=== PATIENT | female | born 1965 | race Caucasian/White ===

== ENCOUNTER → 2018-04-18 | Outpatient (CLI) | payer BC ==
--- NOTE | 2018-04-18 18:53 | Diagnostic Imaging Report ---
HEPATOBILIARY SCAN INDICATION: Right upper abdominal pain Report: Following the administration of 6 mCi of Tc-99m mebrofenin, dynamic images of the abdomen in the anterior projection were obtained through 60 minutes. Additional static image was obtained at 3 hours. Perfusion of the liver is normal. Extraction of tracer from the blood pool by the liver parenchyma is normal. Tracer appears promptly with in the biliary tract. Tracer is seen in the small bowel by 26 minutes post injection of the radiotracer. The gallbladder does not fill during the initial 60-minute dynamic sequence and does not fill by 3 hours. Impression: 1. Absence of filling of the gallbladder through 3 hours post administration of the radiotracer supports the clinical diagnosis of chronic and/or acute cholecystitis. Signed by: Dr. Michelle Castillo M.D. on 04/18/2018 6:50 PM
== END ==
LOC: NM 14:05
PROVIDERS: ATTEND Family Medicine
DX: R10.11 Right upper quadrant pain (principal)
CPT/HCPCS: 78226; A9537

== ENCOUNTER → 2018-07-15 | Day surgery (SDC) | payer BC ==
[~2018-07-15] MED LIST: CLONIDINE HCL0.1 MG PO; DICLOFENAC PO; EPHEDRINE SULFATE INJ 50 MG/10 ML SYR ONE; FENTANYL CITRATE/PF 100MCG/2 ML INJ ONE; GLUCAGON FOR INJ 1 MG VIAL ONE; LIDOCAINE HCL 2% LOCAL INJ 5 ML SDV VIAL INJ ONE; LOSARTAN POTASS25 MG PO; MIDAZOLAM HCL 2 MG/2 ML VIAL ONE; MONTELUKAST SOD10 MG PO; PROPOFOL IV EMULSION 10 MG/ML 50 ML VIAL ONE; TERBINAFINE HC250 MG PO
--- OUTSIDE RECORDS SUMMARY | 2018-07-15 11:49 | XMS REPORT ---
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 Allergies, Adverse Reactions, Alerts Allergy Name Allergy Type Status Severity Reaction(s) Onset Date Inactive Date Treating Clinician Comments No Known Allergies DA Active U 2012-04-20 00:00:00 Medications This patient has no known medications. Results Test Description Test Time Test Comments Text Results Atomic Results Result Comments HEPTOBILIARY 2018-04-18 18:46:00 [place] [id number] Patient Name: MARCO ANTONIO VALDES MR #: [id number] : 1965 Age/Sex: 52/F Req #: [id number] Adm Physician: Ordered by: CHERRI ARANGO MD Report #: [id number] Location: [place] Room/Bed: Procedure: [id number] NM/HEPTOBILIARY Exam Date: Exam Time: REPORT STATUS: Signed HEPATOBILIARY SCAN INDICATION: Right upper abdominal pain Report: Following the administration of 6 mCi of Tc-99m mebrofenin, dynamic images of the abdomen in the anterior projection were obtained through 60 minutes. Additional static image was obtained at 3 hours. Perfusion of the liver is normal. Extraction of tracer from the blood pool by the liver parenchyma is normal. Tracer appears promptly with in the biliary tract. Tracer is seen in the small bowel by 26 minutes post injection of the radiotracer. The gallbladder does not fill during the initial 60-minute dynamic sequence and does not fill by 3 hours. Impression: 1. Absence of filling of the gallbladder through 3 hours post administration of the radiotracer supports the clinical diagnosis of chronic and/or acute cholecystitis. Signed by: Dr. Ralph Reyes M.D. on 04/18/2018 6:50 PM Dictated By: RALPH REYES MD 49 Transcribed By: GURPREET on 04/18/181849 COPY TO: CHERRI ARANGO MD
[2018-07-15 14:25] VITALS: BP 123/98
--- NOTE | 2018-07-15 16:01 | Operative Report ---
DATE OF PROCEDURE: July 15, 2018 REFERRING PHYSICIAN: Dr. Cherri Arango PROCEDURES PERFORMED 1. Esophagogastroduodenoscopy with biopsies. 2. Colonoscopy with polypectomy and biopsies. INDICATION FOR EGD: Dyspepsia. INDICATION FOR COLONOSCOPY: History of bloody diarrhea. MEDICATION: Patient was done under MAC. Please see anesthesiologist's note. PROCEDURE: With the patient in the left lateral decubitus position, the flexible fiberoptic Olympus gastroscope was introduced into the esophagus under direct visualization without any difficulty. There was some patchy erythema noted in the distal esophagus. A minute tongue of velvety red mucosa was noted to extend proximally from the GE junction. That was biopsied to rule out Lundberg's. The scope was then advanced with ease into the stomach. The mucosa overlying the antrum and the body revealed some patchy erythema and mild to moderate edema, and biopsies were obtained and sent to stain for H. pylori. The pylorus was of normal contour and shape. It was intubated with ease, and the scope was advanced all the way to the 2nd portion of the duodenum. Biopsies were obtained from the proximal 2nd portion and the duodenal bulb to rule out sprue. The scope was then withdrawn back into the stomach and retroflexed. Mucosa overlying the fundus and the cardia appeared to be within normal limits. The scope was then straightened out. It was subsequently withdrawn. Patient tolerated the procedure well. IMPRESSION 1. Mild distal esophagitis. 2. Rule out Lundberg's esophagus. 3. Gastritis, biopsied. Biopsies sent to stain for H. pylori. 4. Rule out sprue. PLAN: Follow up histology. Initiate Protonix 40 mg 1 p.o. q.a.m. a.c. The patient was then turned around. After adequate lubrication of the anal canal, a flexible fiberoptic Olympus colonoscope was inserted into the rectum with ease and advanced all the way to the cecum. The mucosa overlying the cecum appeared to be within normal limits. The ileocecal valve was intubated, and the scope was advanced into the terminal ileum. Biopsies were obtained from the terminal ileum. The scope was then withdrawn back into the colon. It was then withdrawn slowly. Mucosa overlying the ascending and transverse appeared to be within normal limits. There were some patchy mild inflammatory changes noted in the left colon and rectum, and random biopsies were obtained. One polyp was snared from the sigmoid colon. The scope was then retroflexed into the distal rectum, and small internal hemorrhoids were noted none of which was actively bleeding. The scope was then straightened out. It was subsequently withdrawn after securing an adequate stool specimen that was sent for the appropriate stool studies. Patient tolerated the procedure well. IMPRESSION 1. Mild patchy left-sided colitis. 2. Sigmoid colon polyp, snared. 3. Proctitis, mild. 4. Internal hemorrhoids, none actively bleeding. PLAN: Follow up histology. Follow up stool studies. Initiate Bentyl 20 mg 1 p.o. t.i.d. and VSL #3 one p.o. daily. Patient might benefit from a followup colonoscopy in 3 to 5 years. Job#: [id number] cc:CHERRI ARANGO MD
[2018-07-15 16:12] LABS: WBC,FECAL (FECAL LACTOFERRIN) NEGATIVE (NEGATIVE)
[2018-07-17 11:41] LABS: C DIFFICILE TOXIN A&B AMP PROB NEGATIVE (NEGATIVE)
== END | disposition home or self-care (01) ==
LOC: OR 11:48
PROVIDERS: ATTEND Internal Medicine Gastroenterology
DX: K51.50 Left sided colitis without complications (principal); K63.5 Polyp of colon; K29.50 Unspecified chronic gastritis without bleeding; K62.89 Other specified diseases of anus and rectum; K64.8 Other hemorrhoids; D63.8 Anemia in other chronic diseases classified elsewhere; I10 Essential (primary) hypertension; F32.9 Major depressive disorder, single episode, unspecified; Z01.810 Encounter for preprocedural cardiovascular examination; Z68.35 Body mass index [BMI] 35.0-35.9, adult
CPT/HCPCS: 43239; 45380; 45385; 83630; 83993; 87045; 87177; 87328; 87493; 93005; J1610; J2001; J2250; J2704; 45378

== ENCOUNTER → 2018-07-21 | Outpatient (CLI) | payer BC ==
[~2018-07-21] MED LIST changes: -EPHEDRINE SULFATE INJ 50 MG/10 ML SYR ONE; -FENTANYL CITRATE/PF 100MCG/2 ML INJ ONE; -GLUCAGON FOR INJ 1 MG VIAL ONE; +IOPAMIDOL 370 MG/ML 200 ML INFUS..BTL INJ ONE; -LIDOCAINE HCL 2% LOCAL INJ 5 ML SDV VIAL INJ ONE; -MIDAZOLAM HCL 2 MG/2 ML VIAL ONE; -PROPOFOL IV EMULSION 10 MG/ML 50 ML VIAL ONE; +SODIUM CHLORIDE 0.9% 50ML 50 ML ONE
[2018-07-21 08:15] LABS: BLOOD UREA NITROGEN 6 mg/dL (8-26); BUN/CREATININE RATIO 9 (6-25); CREATININE, SERUM 0.7 mg/dL (0.6-1.1); EST GLOMERULAR FILTRATION RATE > 60 ML/MIN (60-)
--- NOTE | 2018-07-21 09:37 | Diagnostic Imaging Report ---
EXAMINATION: CT of the abdomen and pelvis with contrast. TECHNIQUE: Spiral CT images of the abdomen and pelvis were performed from the lung bases to the lesser trochanters after the intravenous administration of 100 cc of Isovue-370 and the oral administration of water. Coronal and sagittal reformatted images were obtained. COMPARISON: Nuclear medicine hepatobiliary scan 04/18/2018 CLINICAL HISTORY:Abdominal pain, bloody diarrhea. Patient reports history of cholecystectomy, tubal ligation, and "uterus ablation". DISCUSSION: ABDOMEN/PELVIS: LOWER THORAX:Unremarkable. HEPATOBILIARY: 1 cm lesion in hepatic segment 4A, average internal attenuation 10 Hounsfield units, compatible with a simple cyst. No additional focal hepatic lesions of the visualized portions of the liver. The hepatic dome is incompletely visualized secondary to scan field. No intra-or extrahepatic biliary ductal dilation. The gallbladder has been removed with metallic clips noted in the gallbladder fossa. SPLEEN: No splenomegaly. PANCREAS: No focal masses or ductal dilatation. ADRENALS: No adrenal nodules. KIDNEYS/URETERS: No hydronephrosis, stones, or solid mass lesions. PELVIC ORGANS/BLADDER: The urinary bladder is incompletely distended but otherwise unremarkable. The uterus is anteflexed and appears normal. Bilateral tubal ligation clips. No adnexal mass. PERITONEUM/RETROPERITONEUM: No free air or fluid. LYMPH NODES: No pelvic sidewall, retroperitoneal, or mesenteric lymphadenopathy. VESSELS: Abdominal aorta, major branch vessels, and iliac arterial systems are well-visualized and patent. Minimal calcified atherosclerotic plaque along the right common iliac artery. Portal vein, splenic vein, and central superior mesenteric vein are patent. GI TRACT: There is a short segment focus of wall thickening and vascular engorgement involving the distal ascending colon and hepatic flexure, exemplified on series 2 image 29. The remainder of the large bowel is unremarkable. The appendix is normal. There is no small bowel dilatation to suggest obstruction. BONES AND SOFT TISSUE: No focal soft tissue abnormalities. No osseous destructive lesions. Mild degenerative disc changes and facet arthropathy of the lower lumbar spine. No soft tissue abnormalities. IMPRESSION: Short segment infectious or inflammatory colitis involving the distal ascending colon and hepatic flexure. No evidence of perforation or drainable fluid collection. Signed by: Dr. Mayur Nettles M.D. on 07/21/2018 9:34 AM
== END ==
LOC: CT 07:18
PROVIDERS: ATTEND Internal Medicine Gastroenterology
DX: K92.1 Melena (principal); D64.9 Anemia, unspecified; R14.0 Abdominal distension (gaseous)
CPT/HCPCS: 36415; 74177; 82565; 84520; Q9967

== ENCOUNTER 2020-01-08 16:10 | Observation (INO) | payer BC ==
[~2020-01-08] VITALS: Ht 165.1 cm; Wt 108.0 kg
[~2020-01-08 16:10] MED LIST changes: -IOPAMIDOL 370 MG/ML 200 ML INFUS..BTL INJ ONE; -SODIUM CHLORIDE 0.9% 50ML 50 ML ONE
[2020-01-08] MEDS ORDERED: ASPIRIN 81 MG CHEW TAB PO ONE ×2 (16:45→18:00)
[2020-01-08 17:07] LABS: BASOPHILS # (AUTO) 0.1 (0.0-0.1); BASOPHILS % 0.4 % (0.0-1.0); EOSINOPHILS # (AUTO) 0.4 (0.0-0.4); EOSINOPHILS % 3.1 % (0.0-6.0); HEMATOCRIT 43.6 % (34.2-44.1); HEMOGLOBIN 14.3 g/dL (12.0-16.0); LYMPHOCYTES # (AUTO) 3.7 (1.0-3.2); LYMPHOCYTES % 30.6 % (18.0-39.1); MEAN CORPUSCULAR HEMOGLOBIN 29.2 pg (28-32); MEAN CORPUSCULAR HGB CONC 32.8 g/dL (31-35); MEAN CORPUSCULAR VOLUME 89.2 fL (81-99); MONOCYTES # (AUTO) 0.7 (0.2-0.8); NEUTROPHILS # (AUTO) 6.8 (2.1-6.9); NEUTROPHILS % 57.1 % (38.7-80.0); PLATELET COUNT 320 x10e3/uL (140-360); RED BLOOD COUNT 4.89 x10e6/uL (3.6-5.1); RED CELL DISTRIBUTION WIDTH 12.8 % (11.7-14.4)
[2020-01-08 17:26] LABS: ALANINE AMINOTRANSFERASE 40 IU/L (0-55); ALBUMIN 3.6 g/dL (3.5-5.0); ALBUMIN/GLOBULIN RATIO 1.1 (0.8-2.0); ALKALINE PHOSPHATASE 70 IU/L (40-150); ANION GAP 14.9 mmol/L (8-16); BLOOD UREA NITROGEN 10 mg/dL (7-26); BUN/CREATININE RATIO 13 (6-25); CALCIUM 9.2 mg/dL (8.4-10.2); CARBON DIOXIDE 25 mmol/L (22-29); CHLORIDE 103 mmol/L (98-107); CREATINE KINASE 31 IU/L (29-168); CREATININE, SERUM 0.75 mg/dL (0.57-1.11); EST GLOMERULAR FILTRATION RATE > 60 ML/MIN (60-); GLUCOSE 92 mg/dL (74-118); POTASSIUM 3.9 mmol/L (3.5-5.1); SODIUM 139 mmol/L (136-145)
--- NOTE | 2020-01-08 17:46 | Emergency Department Note ---
History of Present Illnes History of Present Illness Chief Complaint: Chest Pain History of Present Illness This is a 54 year old female . Historian: Patient Arrival Mode: Car Onset (how long ago): day(s) (1) Location: CHEST Quality: DULL Radiation: Denies non-radiation, Denies back, Denies neck, Denies extremity, Denies abdomen, Denies periumbilical, Denies flank, Denies proximal, Denies distal, Denies other Severity: mild Onset quality: gradual Duration (how long): day(s) (1) Timing of current episode: intermittent Progression: waxing and waning Chronicity: new Context: Denies recent illness, Denies recent surgery, Denies recent immobilization, Denies recent travel, Denies trauma/injury, Denies new medications, Denies hx of DVT/PE, Denies non-compliance w/ medications, Denies other Relieving factors: none Exacerbating factors: none Associated symptoms: Reports chest pain; Denies denies other symptoms, Denies confusion, Denies cough, Denies diaphoresis, Denies fever/chills, Denies headaches, Denies loss of appetite, Denies malaise, Denies nausea/vomiting, Denies rash, Denies seizure, Denies shortness of breath, Denies syncope, Denies weakness, Denies other Treatments prior to arrival: none Past Medical/Family History Physician Review I have reviewed the patient's past medical and family history. Any updates have been documented here. Past Medical History Recent Fever: No Clinical Suspicion of Infectio: No New/Unexplained Change in Ment: No Past Medical History: Hypertension, Depression Other Medical History: ULCERATIVE COLITIS Past Surgical History: Cholecysctectomy, T&A, Tubal Ligation Social History Smoking Cessation: Unknown if ever smoked Counseling Performed: No Alcohol Use: None Any Illegal Drug Use: No Physically hurt or threatened: No Other Any Pre-Existing Lines (PICC,: No Review of Systems Review of Systems Constitutional: Reports no symptoms Cardiovascular: Reports as per HPI Physical Exam Related Data Allergies: Coded Allergies: No Known Allergies (Unverified , 07/15/18) Triage Vital Signs Vital Signs Date Time Temp Pulse Resp B/P (MAP) Pulse Ox O2 Delivery O2 Flow Rate FiO2 01/08/20 16:24 99.5 84 18 169/83 98 Room Air Vital signs reviewed: Yes Physical Exam CONSTITUTIONAL Constitutional: Present well-developed, Present well-nourished HENT HENT: Present normocephalic, Present atraumatic, Present oropharynx clear/moist, Present nose normal HENT L/R: Present left ext ear normal, Present right ext ear normal EYES Eyes: Reports PERRL, Reports conjunctivae normal NECK Neck: Present ROM normal PULMONARY Pulmonary: Present effort normal, Present breath sounds normal CARDIOVASCULAR Cardiovascular: Present regular rhythm, Present heart sounds normal, Present capillary refill normal, Present normal rate GASTROINTESTINAL Abdominal: Present soft, Present nontender, Present bowel sounds normal GENITOURINARY Genitourinary: Present exam deferred SKIN Skin: Present warm, Present dry MUSCULOSKELETAL Musculoskeletal: Present ROM normal NEUROLOGICAL Neurological: Present alert, Present oriented x 3, Present no gross motor or sensory deficits PSYCHOLOGICAL Psychological: Present mood/affect normal, Present judgement normal Results Laboratory Result Diagram: 01/08/20 1648 01/08/20 1648 Laboratory Laboratory Tests Test 01/08/20 16:48 White Blood Count 11.97 x10e3/uL (4.8-10.8) Red Blood Count 4.89 x10e6/uL (3.6-5.1) Hemoglobin 14.3 g/dL (12.0-16.0) Hematocrit 43.6 % (34.2-44.1) Mean Corpuscular Volume 89.2 fL (81-99) Mean Corpuscular Hemoglobin 29.2 pg (28-32) Mean Corpuscular Hemoglobin Concent 32.8 g/dL (31-35) Red Cell Distribution Width 12.8 % (11.7-14.4) Platelet Count 320 x10e3/uL (140-360) Neutrophils (%) (Auto) 57.1 % (38.7-80.0) Lymphocytes (%) (Auto) 30.6 % (18.0-39.1) Monocytes (%) (Auto) 6.0 % (4.4-11.3) Eosinophils (%) (Auto) 3.1 % (0.0-6.0) Basophils (%) (Auto) 0.4 % (0.0-1.0) Neutrophils # (Auto) 6.8 (2.1-6.9) Lymphocytes # (Auto) 3.7 (1.0-3.2) Monocytes # (Auto) 0.7 (0.2-0.8) Eosinophils # (Auto) 0.4 (0.0-0.4) Basophils # (Auto) 0.1 (0.0-0.1) Absolute Immature Granulocyte (auto 0.33 x10e3/uL (0-0.1) Sodium Level 139 mmol/L (136-145) Potassium Level 3.9 mmol/L (3.5-5.1) Chloride Level 103 mmol/L (98-107) Carbon Dioxide Level 25 mmol/L (22-29) Anion Gap 14.9 mmol/L (8-16) Blood Urea Nitrogen 10 mg/dL (7-26) Creatinine 0.75 mg/dL (0.57-1.11) Estimat Glomerular Filtration Rate > 60 ML/MIN (60-) BUN/Creatinine Ratio 13 (6-25) Glucose Level 92 mg/dL (74-118) Calcium Level 9.2 mg/dL (8.4-10.2) Total Bilirubin 0.3 mg/dL (0.2-1.2) Aspartate Amino Transf (AST/SGOT) 17 IU/L (5-34) Alanine Aminotransferase (ALT/SGPT) 40 IU/L (0-55) Alkaline Phosphatase 70 IU/L (40-150) Creatine Kinase 31 IU/L (29-168) Creatine Kinase MB 0.80 ng/mL (0-5.0) Troponin I < 0.001 ng/mL (0-0.300) Total Protein 6.8 g/dL (6.5-8.1) Albumin 3.6 g/dL (3.5-5.0) Globulin 3.2 g/dL (2.3-3.5) Albumin/Globulin Ratio 1.1 (0.8-2.0) Lab results reviewed: Yes Imaging Imaging results reviewed: Yes Procedures 12 Lead ECG Interpretation ECG Interpretation : ECG: ECG 1 Clinical Data Manager: Interpreted by ED physician Date: Jan 08, 2020 Time: 16:26 Rhythm: sinus rhythm Rate: normal BPM: 90 QRS axis: normal T waves flattening: III, aVF Clinical Impression: abnormal ECG Assessment & Plan Medical Decision Making MDM CAD Reassessment Reassessment BETTER Assessment & Plan Final Impression: (1) Chest pain Depart Disposition: ADMITTED Last Vital Signs Date Time Temp Pulse Resp B/P (MAP) Pulse Ox O2 Delivery O2 Flow Rate FiO2 7/27/20 16:24 99.5 84 18 169/83 98 Room Air Home Meds Reported Medications Montelukast Sodium (MONTELUKAST SODIUM) 10 Mg Tablet, 10 MG PO DAILY, #30 TAB 07/08/18 Losartan Potassium (LOSARTAN POTASSIUM) 25 Mg Tablet, 25 MG PO DAILY 07/08/18 [Diclofenac] No Conflict Check, 75 MG PO DAILY 07/08/18 Clonidine Hcl (CLONIDINE HCL) 0.1 Mg Tablet, 1 TAB PO DAILY, #60 TAB 07/08/18 Medications in the ED Aspirin 81 mg PRN ONCE PO ; Start 01/08/20 at 16:45; Stop 01/08/20 at 16:52; Status DC YAMILET VENEGAS MD Jan 08, 2020 17:45
[2020-01-08] MEDS ORDERED: ASPIRIN 325 MG TAB PO ONE (18:00)
--- NOTE | 2020-01-08 19:57 | Diagnostic Imaging Report ---
EXAMINATION: CHEST SINGLE (PORTABLE) INDICATION: Difficulty breathing. COMPARISON: None FINDINGS: TUBES and LINES: None. LUNGS: Low lung volumes. There is hazy opacification of the bilateral lung bases. PLEURA: No pleural effusion or pneumothorax. HEART AND MEDIASTINUM: The cardiomediastinal silhouette is unremarkable. BONES AND SOFT TISSUES: No acute osseous lesion. Soft tissues are unremarkable. UPPER ABDOMEN: No free air under the diaphragm. IMPRESSION: Hazy opacification in bilateral lung bases which may represent atelectasis and/or pneumonia in the proper clinical setting. Signed by: Tracie Doyle MD on 01/08/2020 7:54 PM
[2020-01-08 21:57] VITALS: BP 159/79
[2020-01-08 23:35] VITALS: BP 143/67
[2020-01-09 00:51] LABS: CREATINE KINASE 35 IU/L (29-168)
[2020-01-09] MEDS ORDERED: CYMBALTA20 MG PO (01:28)
[2020-01-09] MEDS ORDERED: PROTONIX20 MG PO (01:28)
[2020-01-09] MEDS ORDERED: DICYCLOMINE HCL20 MG PO (01:28)
[2020-01-09 04:00] VITALS: BP 128/70
--- NOTE | 2020-01-09 06:24 | NUR ---
SPOKE TO MD MATTHEWS. AWARE OF CONSULT.
[2020-01-09 06:38] LABS: BASOPHILS # (AUTO) 0.1 (0.0-0.1); BASOPHILS % 0.4 % (0.0-1.0); EOSINOPHILS # (AUTO) 0.3 (0.0-0.4); EOSINOPHILS % 2.7 % (0.0-6.0); HEMATOCRIT 43.4 % (34.2-44.1); HEMOGLOBIN 14.1 g/dL (12.0-16.0); LYMPHOCYTES # (AUTO) 3.2 (1.0-3.2); LYMPHOCYTES % 25.6 % (18.0-39.1); MEAN CORPUSCULAR HEMOGLOBIN 29.1 pg (28-32); MEAN CORPUSCULAR HGB CONC 32.5 g/dL (31-35); MEAN CORPUSCULAR VOLUME 89.7 fL (81-99); MONOCYTES # (AUTO) 0.7 (0.2-0.8); MONOCYTES % 5.3 % (4.4-11.3); NEUTROPHILS # (AUTO) 8.1 (2.1-6.9); NEUTROPHILS % 64.6 % (38.7-80.0); PLATELET COUNT 315 x10e3/uL (140-360); RED BLOOD COUNT 4.84 x10e6/uL (3.6-5.1); RED CELL DISTRIBUTION WIDTH 12.7 % (11.7-14.4)
[2020-01-09 06:57] LABS: BLOOD UREA NITROGEN 10 mg/dL (7-26); BUN/CREATININE RATIO 14 (6-25); CALCIUM 8.9 mg/dL (8.4-10.2); CARBON DIOXIDE 25 mmol/L (22-29); CHLORIDE 104 mmol/L (98-107); EST GLOMERULAR FILTRATION RATE > 60 ML/MIN (60-); GLUCOSE 90 mg/dL (74-118); SODIUM 140 mmol/L (136-145)
--- NOTE | 2020-01-09 07:07 | NUR ---
REPORT GIVEN TO DAYSHIFT NURSE. ALERT AND ORIENTED. RESTING IN BED. NO SIGNS IV INFILTRATION. BED LOCKED AND IN LOW POSITION. CALL LIGHT WITHIN REACH.
[2020-01-09 08:00] VITALS: BP 138/80
[2020-01-09] MEDS: DICYCLOMINE HCL 20 MG TAB PO SCH ×2 (08:49→13:00)
[2020-01-09 08:57] VITALS: BP 138/80
[2020-01-09] MEDS ORDERED: CLONIDINE HCL 0.1 MG TAB PO SCH (09:00)
[2020-01-09] MEDS ORDERED: ASPIRIN 325 MG TAB EC PO SCH (09:00)
[2020-01-09] MEDS ORDERED: DULOXETINE HCL 20 MG DELAYED RELEASE PO SCH (09:00)
[2020-01-09] MEDS ORDERED: PANTOPRAZOLE SOD 40 MG TABEC PO SCH (09:00)
[2020-01-09] MEDS ORDERED: LOSARTAN POTASSIUM 25 MG TAB PO SCH (09:00)
[2020-01-09] MEDS ORDERED: MONTELUKAST SODIUM 10 MG TAB PO SCH (09:00)
[2020-01-09 10:53] LABS: CREATINE KINASE MB 0.7 ng/mL (0-5.0)
[2020-01-09 12:00] VITALS: BP 128/71
[2020-01-09 12:42] LABS: CHOL/HDL RATIO 5.4 (3.0-3.6)
[2020-01-09 13:02] LABS: THYROID STIMULATING HORMONE 1.691 uIU/mL (0.350-4.940)
--- NOTE | 2020-01-09 15:54 | Consultation ---
DATE OF CONSULTATION: 01/09/2020 Cardiac Consultation REASON FOR CONSULTATION: Chest pain. HISTORY OF PRESENT ILLNESS: A delightful 54-year-old lady, who is known to have colitis and seasonal allergic and mild hypertension. She is relatively active. She does have also some minor depression, she takes medication for that. She was in her usual status of health. Five weeks ago her had COVID and she probably got it also from him because she lost test and she had symptoms. However, despite being all that long she is still feeling not so well. Yesterday she had some shortness of breath and dull chest ache. She was alarmed. She was worried maybe she is worsening. She came to the emergency room. Chest x-ray showed haziness in the lung orantes. Her oxygen saturation was maintained good. At that time, the patient admitted and cardiac consult obtained. Serial cardiac enzymes were done and they were negative. I visited with her today over the phone and she is doing well. She denied having any chest pain or any shortness of breath. It seems she prefers to go home. REVIEW OF SYSTEMS: GENERAL: No fever, no chills. HEENT: Congestion. PULMONARY AND CARDIAC: As per acute illness mainly dull ache, which is resolved, but really she is still weak since that time and she is not feeling so good despite all this days. GI: Poor appetite. No hematemesis. No melena. : No hematuria. No dysuria. MUSCULOSKELETAL: Aches and pain. She is still weak. NEUROLOGIC: No seizure activity. SOCIAL HISTORY: She is . She is nonsmoker and non-alcohol drinker. PAST SURGICAL HISTORY: 1. Cholecystectomy. 2. D and C and tubal ligation. 3. Colitis. 4. Hypertension. 5. Seasonal allergies. 6. Mild depression. FAMILY HISTORY: Noncontributory. There is no premature history of coronary artery disease although father and mother have CAD at older age. PHYSICAL EXAMINATION: VITAL SIGNS: Height 5 feet 5 inches, weight of 238, temperature of 98.8, blood pressure 138/80, heart rate 20, and respiratory rate of 18. LABORATORY DATA: Sodium of 140, potassium of 4, BUN of 10, creatinine of 0.7, glucose of 90. White blood cell count of 12.5, hemoglobin of 14.1, hematocrit 43%, platelet count of 315,000. EKG, no acute changes, normal sinus rhythm, inferior Q-wave noted. Serial cardiac enzymes are normal. COVID testing is pending. Electrolytes are normal. There is no lipid profile, which I will order. Chest x-ray showing haziness in the lung orantes. IMPRESSION: 1. Possible sequela of COVID. The patient is still weak. 2. Hypertension. From a cardiac point of view, we will hold now on any other workup. We will await patient for recovery. She will be visiting with me in my office and take care of her father and mother, so she knows me and she will follow with me. In case of any change in her symptoms, she will promise me to give me a call. ALLERGIES: NONE. HOME MEDICATIONS: Include losartan 25 mg a day, clonidine p.r.n., Paxil 20 mg a day, dicyclomine 20 mg q.i.d., Protonix 40 mg a day, Singulair 10 mg a day and inhalers p.r.n. MD WILLIAM Caban/KIMMYL /[id number]
[2020-01-09 16:00] VITALS: BP 106/67
--- NOTE | 2020-01-09 16:41 | NUR ---
Patient resting up in bed, denies any chest pain or SOB, Dr Ugalde talked to her thru phone, he said patient can go home from his side and f/up in his office for further workup, Notified Dr León, He said he will come n see the patient today.
--- NOTE | 2020-01-09 18:50 | NUR ---
Patient discharged Home, Alert with No distress, IV canula removed with tip intact, no ss of infiltration noted, here to pick her
--- NOTE | 2020-01-09 23:47 | History and Physical ---
REASON FOR ADMISSION: This is a 54-year-old lady, who came in with chest pain. HISTORY PRESENT ILLNESS: A 54-year-old female with history of hypertension, depression, and allergies. She was in usual state of health until the patient had symptoms of chest pain. The patient's chest pain is described as dull with some shortness of breath and some ache. The patient has had exposure to her , who is COVID positive, came in with symptoms of chest pain, admitted to COVID yuan and also for rule out acute coronary syndrome. PAST MEDICAL HISTORY: History of hypertension, depression, and allergies. The patient also has history of colitis. PAST SURGICAL HISTORY: History of cholecystectomy, D and C. SOCIAL HISTORY: No EtOH. No IV drug abuse. Nonsmoker. No alcohol abuse either. FAMILY HISTORY: Noncontributory. No history of coronary artery disease. PHYSICAL EXAMINATION: GENERAL: The patient is alert and oriented x3. VITAL SIGNS: Temperature afebrile. The patient's blood pressure is 130/80, heart rate is 22, respirations of 18. LABORATORY VALUES: White count was 11.96, hemoglobin of 14.3, hematocrit of 43.6. Chemistries; sodium of 139, potassium 3.9, BUN of 10, creatinine 0.75. Triglycerides 154, cholesterol of 248, LDL of 171, and TSH is 1.690. Serology; coronavirus is still pending, but the patient has symptoms consistent with COVID-19 exposure. ASSESSMENT: Ms. Mariann Grimes with: 1. Coronavirus disease exposure and possible coronavirus disease symptoms. 2. Hypertension. 3. Chest pain, noncardiac. 4. Hyperlipidemia. PLAN: Continue to monitor the patient. The patient can be discharged from medicine standpoint of view. Continue home medications. Further recommendation as an outpatient. We will continue following her up and also we will follow her up in the clinic in about a week's time, can be discharged today. MD AWILDA Ziegler/MODL /[id number]
== END 2020-01-09 19:10 | disposition home or self-care (01) ==
LOC: ER 16:35 → ERHOLD 17:48 → IMCU 21:59
PROVIDERS: ADMIT Family Medicine; ATTEND Family Medicine
DX: R07.89 Other chest pain (principal); I10 Essential (primary) hypertension; F32.9 Major depressive disorder, single episode, unspecified; Z90.49 Acquired absence of other specified parts of digestive tract; E78.5 Hyperlipidemia, unspecified; R53.1 Weakness; Z20.828 Contact with and (suspected) exposure to other viral communicable diseases; R06.02 Shortness of breath
CPT/HCPCS: 36415 ×2; 71045; 80048; 80053; 80061; 82550 ×2; 82553 ×2; 84443; 84484 ×2; 85025 ×2; 93005; 99284; G0378 ×2; S0164; U0002